=== PATIENT | male | born 2000 | race Caucasian/White ===

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

== ENCOUNTER 2019-05-02 22:17 | Emergency (ER) | payer BC, OTHER ==
[~2019-05-02] VITALS: Ht 172.7 cm; Wt 61.3 kg
[~2019-05-02 22:17] MED LIST: ACET325T33 PO; BENZ-6 PO; D-ME473S2 PO; IBUP800T48 PO
[2019-05-02 22:32] VITALS: Ht 172.7 cm; Wt 61.3 kg
--- NOTE | 2019-05-02 23:11 | ERD ---
ER Documentation Chief Complaint Chief Complaint C/O FEELING FAINT AND GENERALIZED BODY NUMBNESS X30 MIN HPI The patient is a 19-year-old male, presenting to the ER because of bilateral hand numbness, not feeling well, general body numbness, nausea but no vomiting. He denies syncope, near syncope, seizure, facial pain, neck pain, chest pain, dyspnea, abdominal pain, vomiting, dysuria, diarrhea. He smokes, does amphetamine, denied drinking Past medical/surgical history: None ROS All systems reviewed and are negative except as per history of present illness. Medications Home Meds Active Scripts Benzonatate* (Tessalon Perle*) 100 Mg Capsule, 100 MG PO Q8H PRN for COUGH, #30 CAP Prov:LINDA MCDANIELS PA-C 09/25/17 Dextromethorphan Hb-Promethazine Hcl* (Promethazine DM* Syrup) 473 Ml Syrup, 5 ML PO Q6 PRN for COUGH, #100 ML Prov:LINDA MCDANIELS PA-C 09/25/17 Acetaminophen* (Tylenol*) 325 Mg Tablet, 2 TAB PO Q8 PRN for PAIN AND OR ELEVATED TEMP, #20 TAB Prov:LINDA MCDANIELS PA-C 09/25/17 Ibuprofen* (Motrin*) 800 Mg Tab, 800 MG PO Q6, #30 TAB Prov:LINDA MCDANIELS PA-C 09/25/17 Allergies Allergies: Coded Allergies: No Known Allergy (Unverified , 05/02/19) PMhx/Soc Medical and Surgical Hx: pt denies Medical Hx, pt denies Surgical Hx Hx Alcohol Use: No Hx Substance Use: Yes (CRYSTAL METH) Hx Tobacco Use: Yes Smoking Status: Current every day smoker Physical Exam Vitals Vital Signs Date Temp Pulse Resp B/P (MAP) Pulse Ox O2 O2 Flow FiO2 Time Delivery Rate 05/03/19 87 16 125/76 100 Room Air 01:04 (92) 05/02/19 81 16 121/73 100 Room Air 23:13 (89) 05/02/19 97.7 78 19 125/75 99 22:32 (92) Physical Exam Const: No acute distress. Head: Atraumatic. Eyes: Normal Conjunctiva. ENT: Normal External Ears, Nose and Mouth. Neck: Full range of motion. No meningismus. Resp: Clear to auscultation bilaterally. Cardio: Regular rate and rhythm. Abd: Soft, non distended, normal bowel sounds, non tender. Skin: No petechiae or rashes. Back: No midline or flank tenderness. Ext: No cyanosis, or edema. Neur: Awake and alert. No focal deficit Psych: Very anxious Result Diagram: 05/02/19 2329 05/02/19 2329 Results 24 hrs Laboratory Tests Test 05/02/19 23:29 05/02/19 23:43 White Blood Count 9.0 10^3/ul Red Blood Count 5.28 10^6/ul Hemoglobin 15.6 g/dl Hematocrit 45.8 % Mean Corpuscular Volume 86.7 fl Mean Corpuscular Hemoglobin 29.5 pg Mean Corpuscular Hemoglobin Concent 34.1 g/dl Red Cell Distribution Width 12.6 % Platelet Count 222 10^3/UL Mean Platelet Volume 10.1 fl Immature Granulocytes % 0.300 % Neutrophils % 50.8 % Lymphocytes % 33.7 % Monocytes % 9.1 % Eosinophils % 5.1 % Basophils % 1.0 % Nucleated Red Blood Cells % 0.0 /100WBC Immature Granulocytes # 0.030 10^3/ul Neutrophils # 4.6 10^3/ul Lymphocytes # 3.1 10^3/ul Monocytes # 0.8 10^3/ul Eosinophils # 0.5 10^3/ul Basophils # 0.1 10^3/ul Nucleated Red Blood Cells # 0.0 10^3/ul Sodium Level 143 mmol/L Potassium Level 3.1 mmol/L Chloride Level 102 mmol/L Carbon Dioxide Level 33 mmol/L Anion Gap 8 Blood Urea Nitrogen 13 mg/dl Creatinine 1.05 mg/dl Est Glomerular Filtrat Rate mL/min > 60 mL/min Glucose Level 81 mg/dl Calcium Level 10.1 mg/dl Troponin I < 0.012 ng/ml Ethyl Alcohol Level < 10.0 mg/dl Urine Opiates Screen Negative Urine Barbiturates Negative Urine Amphetamines Screen Positive Urine Benzodiazepines Screen Negative Urine Cocaine Screen Negative Urine Cannabinoids Negative Current Medications Medications Dose Sig/Papa Start Time Status Last (Trade) Ordered Route PRN Stop Time Admin Dose Reason Admin Sodium 1,000 ml @ Q1H ONCE 05/02/19 DC 05/02/19 Chloride 1,000 mls/hr IV 23:30 23:41 05/03/19 00:29 Lorazepam 0.5 mg ONCE ONCE 05/02/19 DC 05/02/19 (Ativan) PO 23:30 23:41 05/02/19 23:31 Ondansetron 4 mg ONCE ONCE 05/02/19 DC 05/02/19 HCl (Zofran IV 23:26 23:41 Inj) 05/02/19 23:29 Potassium 60 meq ONCE ONCE 05/03/19 DC 05/03/19 Chloride PO 00:49 00:57 (Klor-Con 20) 05/03/19 00:50 Procedures/MDM MEDICAL MAKING DECISION: The patient is a 19-year-old male, presenting with acute anxiety most likely due to acute amphetamine abuse, acute hypokalemia He was treated with 1 L normal saline for clinical dehydration, Zofran 4 mg IV for nausea, Ativan 0.5 mg p.o. for acute anxiety and potassium chloride 60-meq po. for acute hypokalemia with good response The differential diagnoses considered include but are not limited to anxiety attack, panic attack, substance abuse, psychiatric illness Departure Diagnosis: Primary Impression: Anxiety attack Additional Impressions: Amphetamine abuse Hypokalemia Condition: Good Comments I discussed the findings with the patient. I advised the patient to follow-up with the primary physician in about 1-2 days, sooner if needed and return if any concern. Disclaimer: Inadvertent spelling and grammatical errors are likely due to EHR/dictation software use and do not reflect on the overall quality of patient care. Also, please note that the electronic time recorded on this note does not necessarily reflect the actual time of the patient encounter. CORRINE GOMEZ MD May 02, 2019 23:11
[2019-05-02] MEDS ORDERED: ONDANSETRON 4 MG INJ IV ONE (23:26)
[2019-05-02] MEDS ORDERED: LORAZEPAM 0.5 MG TAB PO ONE (23:30)
[2019-05-02] MEDS ORDERED: SOD CHLORIDE 0.9% 1,000 ML IV ONE (23:30)
[2019-05-03] MEDS ORDERED: POTASSIUM CHLORIDE (SR) 20 MEQ TAB PO ONE (00:49)
[2019-05-03 01:04] VITALS: BP 125/76; PULSE 87; RESP 16
== END 2019-05-03 01:10 | disposition home or self-care (01) ==
LOC: E/R 22:17
DX: F41.9 Anxiety disorder, unspecified (principal); F17.210 Nicotine dependence, cigarettes, uncomplicated; F15.10 Other stimulant abuse, uncomplicated; E87.6 Hypokalemia; R40.2142 Coma scale, eyes open, spontaneous, at arrival to emergency department; R40.2362 Coma scale, best motor response, obeys commands, at arrival to emergency department; R40.2252 Coma scale, best verbal response, oriented, at arrival to emergency department; R07.9 Chest pain, unspecified
CPT/HCPCS: 36415; 71045; 80048; 80307; 84484; 85025; 93005; 96374; 99285; J2405; J7030